=== PATIENT | female | born 2000 | race Caucasian/White ===

== ENCOUNTER 2023-07-15 01:19 | Emergency (ER) | payer OTHER ==
[~2023-07-15] VITALS: Ht 172.7 cm; Wt 73.5 kg
[~2023-07-15 01:19] MED LIST: ZANTAC150 MG
[2023-07-15] MEDS ORDERED: CETIRIZINE HCL10 MG PO (01:27)
[2023-07-15] MEDS ORDERED: CIPRO HC OTIC S10 ML OT (02:56)
[2023-07-15] MEDS ORDERED: TRAMADOL HCL50 MG PO (02:56)
== END 2023-07-15 03:26 ==
LOC: ER 01:19
DX: H60.8X1 Other otitis externa, right ear (principal)

== ENCOUNTER 2024-05-02 09:17 | Emergency (ER) | payer OTHER ==
[~2024-05-02] VITALS: Ht 170.2 cm; Wt 71.7 kg
[~2024-05-02 09:17] MED LIST changes: +CETIRIZINE HCL10 MG PO; +CIPRO HC OTIC S10 ML OT; +TRAMADOL HCL50 MG PO
[2024-05-02] MEDS ORDERED: CEFTRIAXONE SODIUM 1,000 MG VIAL IM STA (09:40)
[2024-05-02] MEDS ORDERED: KETOROLAC TROMETHAMINE 30 MG VIAL IM STA (09:40)
== END 2024-05-02 09:50 | disposition home or self-care (01) ==
LOC: ER 09:19
DX: H60.8X2 Other otitis externa, left ear (principal)

== ENCOUNTER → 2025-05-28 | Emergency (ER) | payer OTHER ==
[~2025-05-28] VITALS: Ht 172.7 cm; Wt 68.0 kg
[~2025-05-28] MED LIST changes: +ZYRTEC10 M3 PO
[2025-05-28 09:04] LABS: BASO % 0.5 % (0.1-1.2); EOS # 0.06 (0.04-0.54); LYMPH # 1.68 (1.18-3.74); LYMPH % 25.5 % (19.3-53.1); MEAN PLATELET VOLUME 11.00 fl (9.4-12.4); MONO # 0.83 (0.24-0.82); NEUT # 3.96 (1.56-6.13); NEUT % 60.2 % (34.0-71.1); RED CELL DISTRIBUTION WIDTH 13.0 % (11.6-14.4)
[2025-05-28 09:11] LABS: EOS % 0.9 % (0.7-7.0); MONO % 12.6 % (4.7-12.5)
[2025-05-28 09:24] LABS: COVID-19 AG POSITIVE (NEGATIVE)
== END | disposition home or self-care (01) ==
LOC: ER 08:12
PROVIDERS: General Practice
DX: U07.1 COVID-19 (principal)